=== PATIENT | male | born 1985 | race Caucasian/White ===

== ENCOUNTER 2020-05-14 15:23 | Emergency (ER) | payer SELFPAY ==
[~2020-05-14] VITALS: Ht 170.2 cm; Wt 86.2 kg
[2020-05-14 15:24] VITALS: BP 126/77; Ht 170.2 cm; Wt 86.2 kg
== END 2020-05-14 16:26 | disposition home or self-care (01) ==
LOC: ED 15:23
DX: J02.9 Acute pharyngitis, unspecified (principal); Z20.828 Contact with and (suspected) exposure to other viral communicable diseases
CPT/HCPCS: U0003